=== PATIENT | male | born 1965 | race Caucasian/White ===

== ENCOUNTER 2017-12-07 17:24 | Emergency (ER) | payer OTHER ==
[~2017-12-07] VITALS: Ht 177.8 cm; Wt 103.0 kg
[2017-12-07 17:41] VITALS: BP 135/97
[2017-12-07] MEDS ORDERED: LIDOCAINE 1%, 10ML ONE (17:57)
== END 2017-12-07 19:24 | disposition home or self-care (01) ==
LOC: ED 18:55
DX: S61.012A Laceration without foreign body of left thumb without damage to nail, initial encounter (principal); W19.XXXA Unspecified fall, initial encounter; Y93.89 Activity, other specified; Y99.8 Other external cause status; Y92.89 Other specified places as the place of occurrence of the external cause
CPT/HCPCS: 12002; 99284